=== PATIENT | male | born 2005 | race African-American/Black ===

== ENCOUNTER → 2025-06-06 | Outpatient (CLI) | payer OTHER | LOC: M RAD 07:44 | PROVIDERS: ATTEND Physician Assistant | DX: S83.209A Unspecified tear of unspecified meniscus, current injury, unspecified knee, initial encounter (principal); W18.30XA Fall on same level, unspecified, initial encounter; Y92.009 Unspecified place in unspecified non-institutional (private) residence as the place of occurrence of the external cause ==